=== PATIENT | female | born 1965 | race Caucasian/White ===

== ENCOUNTER 2017-08-13 19:27 | Emergency (ER) | payer BC ==
[2017-08-13 19:48] VITALS: RESP 20
--- NOTE | 2017-08-13 20:16 | C.PDOC ---
History Of Present Illness 51 year old female, whose PMHx includes HTN, seizures, fribromyalgia, and kidney stones, presents to the ED for evaluation of dizziness which began last night. Patient reports a "room-spinning sensation" that worsens with standing up and changes in head position. When she stands up, patient feels like she is going to "faint." Patient has been experiencing similar symptoms intermittently for the past 6 months, and was recently evaluated 1.5 weeks ago for same symptoms and was told she had a seizure. Patient reports she usually experiences loss of consciousness and urinary and bowel incontinence whenever she has seizure episodes. She has been compliant with her seizure medication ( Keppra).Patient denies runny nose, ear pain, sore thrat, sinus pressure, nasal congestion. Chief Complaint (Nursing): Dizziness/Lightheaded History Per: Patient History/Exam Limitations: no limitations Onset/Duration Of Symptoms: Hrs Current Symptoms Are (Timing): Still Present Activity At Onset Of Symptoms: Standing, Change In Head Position Associated Symptoms Preceding Syncopal Episode: No Predromal Symptoms (Sudden Onset), Worse With Standing Seizure Or Post-ictal Symptoms: None Fall Associated With With Symptoms: No Additional History Per: Patient Past Medical History Reviewed: Historical Data, Nursing Documentation, Vital Signs Vital Signs: Last Vital Signs Temp 98.3 F 08/13/17 23:23 Pulse 93 H 08/13/17 23:23 Resp 20 08/13/17 23:23 BP 113/77 08/13/17 23:23 Pulse Ox 96 08/13/17 23:23 - Medical History PMH: Asthma, Fibromyalgia, HTN, Hypercholesterolemia, Hyperlipidemia, Kidney Stones, Seizures (NEW ONSET 2 WEEKS AGO) Surgical History: Back Surgery, Cholecystectomy - [facility] Procedures INJECT/INFUSE NEC (07/05/14) NEBULIZER THERAPY (07/23/14) OTHER SKIN & SUBQ I D (12/06/13) Family History: States: Hypertension - Social History Hx Tobacco Use: Yes Hx Alcohol Use: No Hx Substance Use: No Review Of Systems ENT: Negative for: Ear Pain, Nose Discharge, Nose Congestion, Throat Pain, Other (sinus pressure ) Neurological: Positive for: Dizziness Physical Exam - Physical Exam Appears: Non-toxic, No Acute Distress Skin: Normal Color, Warm, Dry Head: Atraumatic, Normacephalic Eye(s): bilateral: Normal Inspection, PERRL, EOMI Oral Mucosa: Moist Neck: Supple Chest: Symmetrical, No Deformity, No Tenderness Cardiovascular: Rhythm Regular, No Murmur Respiratory: Normal Breath Sounds, No Rales, No Rhonchi, No Wheezing Extremity: Normal ROM, Capillary Refill (less than 2 seconds ) Neurological/Psych: Oriented x3, Normal Speech, Normal Cognition, Normal Cranial Nerves Other Neurological Findings: No Other (facial asymmetry, pronator drift) ED Course And Treatment - Laboratory Results Result Diagrams: 08/13/17 20:32 08/13/17 20:32 O2 Sat by Pulse Oximetry: 95 (on RA) Pulse Ox Interpretation: Normal Medical Decision Making Medical Decision Making: Progress: bloodwork and urinalysis ordered and reviewed. Disposition - Disposition Referrals: [facility] [Outside] Disposition: HOME/ ROUTINE Disposition Time: 06:18 Condition: GOOD Prescriptions: Meclizine [Meclizine*] 25 mg PO Q6 #30 tab Instructions: Vertigo (ED), Hypokalemia (DC) Forms: Gen Discharge Inst Armenian, [facility] (Tuvaluan) Print Language: CHINESE - Clinical Impression Clinical Impression: Dizziness - Scribe Statement The provider has reviewed the documentation as recorded by the Scribe (Pamela Monaco) Provider Attestation: All medical record entries made by the Scribe were at my direction and personally dictated by me. I have reviewed the chart and agree that the record accurately reflects my personal performance of the history, physical exam, medical decision making, and the department course for this patient. I have also personally directed, reviewed, and agree with the discharge instructions and disposition.
[2017-08-13 20:36] LABS: BASO # 0.1 K/uL (0.0-0.2); BASO % 0.5 % (0.0-2.0); EOS # 0.2 K/uL (0.0-0.7); EOS % 1.6 % (0.0-4.0); HEMOGLOBIN 12.3 g/dL (11.0-16.0); LYMPH # 3.4 K/uL (1.0-4.3); LYMPH % 22.2 % (20.0-40.0); MEAN CELL VOLUME 97.9 fL (81.0-99.0); MEAN CORPUSCULAR HEMOGLOBIN 33.6 pg (27.0-31.0); MEAN CORPUSCULAR HGB CONC 34.3 g/dL (33.0-37.0); MEAN PLATELET VOLUME 9.2 fL (7.2-11.7); MONO # 1.5 K/uL (0.0-0.8); MONO % 9.7 % (0.0-10.0); RBC 3.67 Mil/uL (3.80-5.20); RED CELL DISTRIBUTION WIDTH 14.2 % (11.5-14.5); WHITE BLOOD COUNT 15.1 K/uL (4.8-10.8)
[2017-08-13 20:51] LABS: ALB/GLOB RATIO 1.2 (1.0-2.1); ALBUMIN 4.4 g/dL (3.5-5.0); ALT/SGPT 67 U/L (9-52); AST/SGOT 34 U/L (14-36); BLOOD UREA NITROGEN 28 mg/dL (7-17); CALCIUM 10.1 mg/dl (8.6-10.4); GFR AFRICAN-AMERICAN > 60; GFR NON-AFRICAN AMERICAN 52
[2017-08-13] MEDS ORDERED: Potassium Chloride 20 mEq/15 ml LIQ UD ONE (21:02)
[2017-08-13] MEDS: Potassium Chloride 20 mEq/15 ml LIQ UD PO STA ×2 (21:04→21:16)
[2017-08-13] MEDS ORDERED: Potassium Chloride 20 mEq ER Tab PO STA (21:08)
[2017-08-13] MEDS ORDERED: Potassium Chloride 20 mEq ER Tab PO ONE (21:19)
[2017-08-13 23:23] VITALS: BP 113/77; PULSE 93; TEMP 98.3
[2017-08-14 06:19] VITALS: O2SAT 95
--- NOTE | 2017-08-14 16:26 | CARD ---
APPROVED REPORT EKG Measurement Heart [id number] <Conclusion> Normal sinus rhythm Possible Left atrial enlargement Borderline ECG
[2017-08-17 21:01] LABS: LEVETIRACETAM 13.1 mcg/mL
== END 2017-08-14 | disposition home or self-care (01) ==
LOC: C.ER 19:27
DX: R42 Dizziness and giddiness (principal); E78.00 Pure hypercholesterolemia, unspecified; I10 Essential (primary) hypertension; M79.7 Fibromyalgia; Z87.891 Personal history of nicotine dependence
CPT/HCPCS: 80053; 80299; 82948; 85025; 93005; 96360; 99285; J3480